=== PATIENT | female | born 1980 | race Caucasian/White ===

== ENCOUNTER 2025-04-03 07:56 | Day surgery (SDC) | payer OTHER ==
[~2025-04-03 07:56] MED LIST: Sodium Chloride 0.9% 10 ML Syringe FLUSH PRN; Sodium Chloride 0.9% 2.5 ML Syringe FLUSH PRN
[2025-04-03] MEDS: Lactated Ringers 1,000 ML IV SCH (08:45)
[2025-04-03] MEDS ORDERED: Propofol 200 MG/20 ML SDV ONE ×3 (09:25→10:01)
== END 2025-04-03 10:50 | disposition home or self-care (01) ==
LOC: MW.SDS 07:56
PROVIDERS: ATTEND Surgery
DX: Z12.11 Encounter for screening for malignant neoplasm of colon (principal); K63.89 Other specified diseases of intestine; E66.9 Obesity, unspecified; E78.5 Hyperlipidemia, unspecified; Z68.32 Body mass index [BMI] 32.0-32.9, adult; Z85.038 Personal history of other malignant neoplasm of large intestine; Z87.891 Personal history of nicotine dependence; Z79.899 Other long term (current) drug therapy
CPT/HCPCS: 45380; J2003; J2704; J7120; 00811